=== PATIENT | male | born 1955 | race Caucasian/White ===

== ENCOUNTER 2020-06-21 15:50 | Emergency (ER) | payer BC ==
[~2020-06-21] VITALS: Ht 177.8 cm; Wt 86.2 kg
[2020-06-21] MEDS ORDERED: ZINC SULFATE220 M2 PO ×2 (19:47)
[2020-06-21] MEDS ORDERED: IVERMECTIN3 MG PO ×2 (19:47)
[2020-06-21] MEDS ORDERED: ACETAMINOPHEN650 M2 PO ×2 (19:47)
[2020-06-21] MEDS ORDERED: VITAMIN C WIT1000 MG PO ×2 (19:47)
[2020-06-21] MEDS ORDERED: MELATONIN 10 M1 EACH PO ×2 (19:47)
[2020-06-21] MEDS ORDERED: AZITHROMYCIN250 MG PO ×2 (19:47)
[2020-06-21] MEDS ORDERED: VITAMIN D3-ALO1 EACH PO ×2 (19:47)
[2020-06-21] MEDS ORDERED: MEDROLPACK PO ×2 (19:47)
[2020-06-22] MEDS ORDERED: IVERMECTIN3 MG PO (07:53)
[2020-06-22] MEDS ORDERED: MEDROLPACK PO (07:53)
[2020-06-22] MEDS ORDERED: ZINC SULFATE220 M2 PO (07:53)
[2020-06-22] MEDS ORDERED: AZITHROMYCIN250 MG PO (07:53)
[2020-06-22] MEDS ORDERED: ACETAMINOPHEN650 M2 PO (07:53)
[2020-06-22] MEDS ORDERED: VITAMIN C WIT1000 MG PO (07:53)
[2020-06-22] MEDS ORDERED: MELATONIN 10 M1 EACH PO (07:54)
[2020-06-22] MEDS ORDERED: VITAMIN D3-ALO1 EACH PO (07:54)
== END 2020-06-21 19:54 | disposition home or self-care (01) ==
LOC: ER 15:50
DX: U07.1 COVID-19 (principal); J12.82 Pneumonia due to coronavirus disease 2019; B33.8 Other specified viral diseases; R50.9 Fever, unspecified; R09.02 Hypoxemia

== ENCOUNTER 2020-06-21 20:55 | Emergency (ER) | payer BC ==
[~2020-06-21] VITALS: Ht 177.8 cm; Wt 81.6 kg
[~2020-06-21 20:55] MED LIST: ACETAMINOPHEN650 M2 PO; AZITHROMYCIN250 MG PO; IVERMECTIN3 MG PO; MEDROLPACK PO; MELATONIN 10 M1 EACH PO; VITAMIN C WIT1000 MG PO; VITAMIN D3-ALO1 EACH PO; ZINC SULFATE220 M2 PO
[2020-06-22] MEDS ORDERED: AZITHROMYCIN250 MG PO (07:53)
[2020-06-22] MEDS ORDERED: VITAMIN C WIT1000 MG PO (07:53)
[2020-06-22] MEDS ORDERED: IVERMECTIN3 MG PO (07:53)
[2020-06-22] MEDS ORDERED: ACETAMINOPHEN650 M2 PO (07:53)
[2020-06-22] MEDS ORDERED: MEDROLPACK PO (07:53)
[2020-06-22] MEDS ORDERED: ZINC SULFATE220 M2 PO (07:53)
[2020-06-22] MEDS ORDERED: VITAMIN D3-ALO1 EACH PO (07:54)
[2020-06-22] MEDS ORDERED: MELATONIN 10 M1 EACH PO (07:54)
== END 2020-06-22 08:19 | disposition home or self-care (01) ==
LOC: ER 20:55
DX: B33.8 Other specified viral diseases (principal); R05 Cough; R06.02 Shortness of breath; Z20.822 Contact with and (suspected) exposure to COVID-19